=== PATIENT | female | born 1950 | race Caucasian/White ===

== ENCOUNTER → 2017-09-17 | Outpatient (CLI) | payer MEDICARE, OTHER ==
[~2017-09-17] MED LIST: ASPI-715 PO; CEPH250C37 PO; CHOL200074 PO; DICL100G24 TP; HYDR28.426 TP; INUL1TAB PO; KRIL500C2 PO; LACT1CAP6 PO; LEVO75TA73 PO; METANXPT PO; METF-411 PO; METR1COM3 TP; TRET15GE13 TP; [UNRECOGNIZED DRUG - CODE] PO
--- NOTE | 2017-09-17 11:09 | RADIOLOGY IMAGING REPORT ---
[place] [facility] [place] Anitha Weiss : 1950 MR: [id number] V: [id number] EXAM DATE: ORDERING PHYSICIAN: ARI DODSON TECHNOLOGIST: Location: [facility] - [place] Patient: Anitha Weiss : 1950 Visit/Account:[id number] Date of Sevice: 09/17/2017 Study: CT scan of the brain without intravenous contrast. Indication: Head injury Comparison study:None Technique: Multiple axial images were obtained through the brain without the use of intravenous contr ast. One of the following dose optimization techniques was utilized in the performance of this exam: Autom ated exposure control; adjustment of the mA and/or kV according to the patient's size; or use of an i terative reconstruction technique. Specific details can be referenced in the facility's radiology C T exam operational policy. The examination demonstrates no evidence of acute intracranial hemorrhage. There is no evidence of ex tra-axial collection or hydrocephalus. There is an area of CSF density within the left caudate nucleus head. 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 There is no evidence of disruption of the peripheral allen-white junction. The bony structures are unremarkable. IMPRESSION: No acute intracranial abnormality identified. There is no evidence of intracranial traum atic injury. Report Dictated By: David Skinner at 09/17/2017 11:04 AM Report E-Signed By: David Skinner at 09/17/2017 11:06 AM [id number]
== END ==
LOC: CT 10:37
PROVIDERS: ATTEND Family Medicine
DX: H53.9 Unspecified visual disturbance (principal); R51 Headache
CPT/HCPCS: 70450

== ENCOUNTER → 2017-11-23 | Outpatient (CLI) | payer MEDICARE, OTHER ==
[2017-11-23 14:24] LABS: LDL CHOLESTEROL 74 mg/dl
== END ==
LOC: LAB 13:17
PROVIDERS: ATTEND Family Medicine
DX: E11.65 Type 2 diabetes mellitus with hyperglycemia (principal); E78.5 Hyperlipidemia, unspecified; E03.9 Hypothyroidism, unspecified
CPT/HCPCS: 36415; 82040; 82043; 82247; 82310; 82374; 82435; 82465; 82565; 82947; 83036; 83718; 84075; 84132; 84155; 84295; 84443; 84450; 84460; 84478; 84520

== ENCOUNTER 2018-08-10 03:38 | Emergency (ER) | payer MEDICARE, OTHER ==
[~2018-08-10 03:38] MED LIST changes: -METF-411 PO; +METF-450 PO
--- NOTE | 2018-08-10 03:41 | ER Report ---
History and Physical Time Seen By MD: 03:40 HPI/ROS CHIEF COMPLAINT: Accidental overdose on verapamil HISTORY OF PRESENT ILLNESS: 68-year-old female who takes verapamil for PVC control. He takes 180 mg extended-release over 12 hour tablet for many years. Tonight she left the pill on the table accidentally picked it up with some knots crunched up and swallowed it. She contacted poison control because she was feeling nauseous and shaky. She denies chest pain, shortness of breath, near- syncope. Poison control advised her to come in for evaluation. They advise monitoring for several hours for hypotension and bradycardia. REVIEW OF SYSTEMS: Respiratory: No cough, no dyspnea. Cardiovascular: No chest pain, no palpitations. Gastrointestinal: No vomiting, no abdominal pain. Musculoskeletal: No back pain. Allergies: Coded Allergies: clindamycin (Verified Allergy, Severe, STOMACH REFLUX, 08/10/18) adhesive (Verified Allergy, Intermediate, REDNESS, 08/10/18) codeine (Verified Allergy, Intermediate, RINGING IN EARS, 08/10/18) naproxen (Verified Allergy, Intermediate, RINGING IN EARS, 08/10/18) penicillin G (Verified Allergy, Intermediate, LARGE HIVES, 08/10/18) BEE STINGS (Verified Allergy, Unknown, HIVES, 08/10/18) Uncoded Allergies: HAYFEVER (Allergy, Intermediate, UNKNOWN, 10/01/11) Home Meds Reported Medications Inulin/Chromium Picolinate (Fiber Gummies) 1 Each Tab.chew, 1 TAB PO DAILY 01/08/17 Lactobacillus Combination No.4 (PROBIOTIC) 1 Each Capsule, 1 EACH PO DAILY, CAPSULE 01/08/17 Levothyroxine Sodium (LEVOTHYROXINE SODIUM) 75 Mcg Tablet, 75 MCG PO QDAY, TAB 01/08/17 Metformin Hcl (METFORMIN HCL) 500 Mg Tablet, 1 TAB PO TID, TAB 01/08/17 Cholecalciferol (Vitamin D3) (VITAMIN D-3) 2,000 Unit Capsule, 1 CAP PO DAILY, CAPSULE 04/25/14 Metronidazole/Skin Cleanser (Metrogel 1% Kit) 1 Ea Combo..pkg, 1 EA TP DAILY, 0 Refills 04/08/11 Krill Oil (Krill Oil) 500 Mg Capsule, 300 MG PO DAILY, 0 Refills 04/08/11 Me-Cobalam/Lm-Folate/Pyridoxal (Metanx Tablet) 1 Tab Tablet, 1 TAB PO BID, 0 Refills 04/08/11 Aspirin (Aspirin) 81 Mg Tablet.dr, 81 MG PO DAILY, 0 Refills 04/08/11 Verapamil Hcl (Verapamil Er) 180 Mg Tablet.er, 180 MG PO DAILY, 0 Refills 04/08/11 Past Medical/Surgical History Past Medical History Neurologic: Reports hx of: migraine other neurologic history (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) Cardiovascular: Reports hx of: hypertension other CV history (MVP) Integumentary: Reports hx of: other integumentary hx (rosacea) Endocrine: Reports hx of: other endocrine history (hyperglycemia) Past Surgical History Gastrointestinal: Reports hx of: cholecystectomy (1975) Gynecologic: Reports hx of: 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) Musculoskeletal: Reports hx of: spinal surgery (lumbar lami 10/08) other musculoskeletal srg (DeQuervain's tendon surgery 07/02) Reviewed Nurses Notes: Yes Old Medical Records Reviewed: Yes Hx Smoking: No Smoking Status: Never Smoker Exposure to Second Hand Smoke?: No Hx Alcohol Use: No Constitutional Vital Sign - Last 24 Hours 08/10/18 08/10/18 08/10/18 08/10/18 03:42 03:43 03:45 03:53 Temp 98.8 Pulse 82 83 Resp 14 15 B/P (MAP) 171/70 (103) 171/70 157/81 (106) Pulse Ox 90 89 O2 Delivery Room Air 08/10/18 08/10/18 08/10/18 08/10/18 04:00 04:08 04:23 04:30 Pulse 76 78 Resp 39 11 B/P (MAP) 153/75 (101) 145/79 (101) Pulse Ox 90 96 08/10/18 08/10/18 08/10/18 08/10/18 04:38 04:53 05:00 05:23 Pulse 69 65 70 Resp 14 11 17 B/P (MAP) 140/70 (93) Pulse Ox 88 90 89 08/10/18 08/10/18 08/10/18 08/10/18 05:30 05:32 05:37 05:52 Pulse 72 73 68 Resp 14 11 B/P (MAP) 122/47 (72) Pulse Ox 88 90 08/10/18 08/10/18 08/10/18 08/10/18 06:00 06:07 06:22 06:30 Pulse 66 Resp 17 9 B/P (MAP) 128/58 (81) 124/66 (85) Pulse Ox 82 93 Intake and Output 08/09/18 08/09/18 08/10/18 14:59 22:59 06:59 Intake Total 1000 ml Balance 1000 ml General Appearance: [The patient is alert, has no immediate need for airway protection and no current signs of toxicity.] [ ] [Eyes:] [Pupils equal and round no injection.] Respiratory: [Chest is non tender, lungs are clear to auscultation.] Cardiac: [regular rate and rhythm] [ ] Gastrointestinal: [Abdomen is soft and non tender, no masses, bowel sounds normal.] [Musculoskeletal:] [Neck:] [Neck is supple and non tender.] [Extremities have full range of motion and are non tender.] [Skin:] [No rashes or lesions.] [ ] [DIFFERENTIAL DIAGNOSIS: After history and physical exam differential diagnosis was considered for] [ ] Physical Exam General Appearance: The patient is alert, has no immediate need for airway protection and no current signs of toxicity. Vital signs stable, afebrile, pulse ox normal HEENT: Pupils equal and round no injection. Oropharynx without redness or exudate, mucous. Membranes are moist Respiratory: Chest is non tender, lungs are clear to auscultation. Cardiac: regular rate and rhythm, no murmur Gastrointestinal: Abdomen is soft and non tender, no masses, bowel sounds normal. Musculoskeletal: Neck: Neck is supple and non tender. Extremities have full range of motion and are non tender. Skin: No rashes or lesions. DIFFERENTIAL DIAGNOSIS: After history and physical exam differential diagnosis was considered for accidental overdose, hypotension, bradycardia Medical Decision Making Data Points Result Diagram: 08/10/18 0400 08/10/18 0400 Laboratory Hematology Test 08/10/18 04:00 Red Blood Count 5.11 M/uL (4.17-5.56) Mean Corpuscular Volume 90.5 fL (80.0-96.0) Mean Corpuscular Hemoglobin 30.2 pg (26.0-33.0) Mean Corpuscular Hemoglobin Concent 33.4 g/dL (32.0-36.0) Red Cell Distribution Width 13.6 % (11.5-14.5) Mean Platelet Volume 7.7 fL (7.2-11.1) Neutrophils (%) (Auto) 52.8 % (39.4-72.5) Lymphocytes (%) (Auto) 35.7 % (17.6-49.6) Monocytes (%) (Auto) 7.9 % (4.1-12.4) Eosinophils (%) (Auto) 2.8 % (0.4-6.7) Basophils (%) (Auto) 0.8 % (0.3-1.4) Nucleated RBC Relative Count (auto) 0.0 /100WBC Neutrophils # (Auto) 3.7 K/uL (2.0-7.4) Lymphocytes # (Auto) 2.5 K/uL (1.3-3.6) Monocytes # (Auto) 0.6 K/uL (0.3-1.0) Eosinophils # (Auto) 0.2 K/uL (0.0-0.5) Basophils # (Auto) 0.1 K/uL (0.0-0.1) Nucleated RBC Absolute Count (auto) 0.00 K/uL Sodium Level 138 mmol/L (137-145) Potassium Level 3.9 mmol/L (3.5-5.0) Chloride Level 102 mmol/L (98-107) Carbon Dioxide Level 27 mmol/L (22-31) Blood Urea Nitrogen 17 mg/dl (7-18) Creatinine 0.80 mg/dl (0.52-1.04) Glomerular Filtration Rate Calc > 60.0 Random Glucose 166 mg/dl (75-110) Calcium Level 9.9 mg/dl (8.4-10.2) Total Bilirubin 0.2 mg/dl (0.2-1.3) Aspartate Amino Transf (AST/SGOT) 25 U/L (0-35) Alanine Aminotransferase (ALT/SGPT) 37 U/L (0-56) Alkaline Phosphatase 53 U/L (0-126) Troponin I < 0.012 ng/ml Total Protein 8.1 g/dl (6.3-8.2) Albumin 4.8 g/dl (3.5-5.0) Chemistry Test 08/10/18 04:00 White Blood Count 7.0 k/uL (4.5-11.0) Red Blood Count 5.11 M/uL (4.17-5.56) Hemoglobin 15.4 g/dL (12.0-16.0) Hematocrit 46.2 % (34.0-47.0) Mean Corpuscular Volume 90.5 fL (80.0-96.0) Mean Corpuscular Hemoglobin 30.2 pg (26.0-33.0) Mean Corpuscular Hemoglobin Concent 33.4 g/dL (32.0-36.0) Red Cell Distribution Width 13.6 % (11.5-14.5) Platelet Count 236 K/uL (150-450) Mean Platelet Volume 7.7 fL (7.2-11.1) Neutrophils (%) (Auto) 52.8 % (39.4-72.5) Lymphocytes (%) (Auto) 35.7 % (17.6-49.6) Monocytes (%) (Auto) 7.9 % (4.1-12.4) Eosinophils (%) (Auto) 2.8 % (0.4-6.7) Basophils (%) (Auto) 0.8 % (0.3-1.4) Nucleated RBC Relative Count (auto) 0.0 /100WBC Neutrophils # (Auto) 3.7 K/uL (2.0-7.4) Lymphocytes # (Auto) 2.5 K/uL (1.3-3.6) Monocytes # (Auto) 0.6 K/uL (0.3-1.0) Eosinophils # (Auto) 0.2 K/uL (0.0-0.5) Basophils # (Auto) 0.1 K/uL (0.0-0.1) Nucleated RBC Absolute Count (auto) 0.00 K/uL Glomerular Filtration Rate Calc > 60.0 Calcium Level 9.9 mg/dl (8.4-10.2) Total Bilirubin 0.2 mg/dl (0.2-1.3) Aspartate Amino Transf (AST/SGOT) 25 U/L (0-35) Alanine Aminotransferase (ALT/SGPT) 37 U/L (0-56) Alkaline Phosphatase 53 U/L (0-126) Troponin I < 0.012 ng/ml Total Protein 8.1 g/dl (6.3-8.2) Albumin 4.8 g/dl (3.5-5.0) EKG/Imaging EKG Interpretation 12 lead EK 357 Rhythm: normal sinus rhythm [place]: normal QRS: normal ST segments: normal, no evidence of ischemia, or dysrhythmia ED Course/Re-evaluation Clinical Indication for ER IV: Hydration, IV Access ED Course Patient was admitted to an examination room. H&P was done. The differential diagnoses was considered. On arrival, patient has stable vital signs, slightly elevated blood pressure and heart rate of 89. She presumably consumed a extend release 180 mg verapamil tablet that is post to be released over 12 hours. She consumed it with peanuts and crunched it up and swallowed it. Poison control advised her to come in for evaluation. Patient feels a little shaky and a trace of nausea on arrival. Otherwise she feels fine. Her EKG shows a normal sinus rhythm without evidence of ischemia or dysrhythmia. Patient has a peripheral IV established. She is given 1 L of normal saline. Diagnostic laboratory studies are unremarkable except her glucose is 166. Patient was monitored for 4 hours after ingestion without symptoms. She remained non-bradycardic in her pressure remained stable in the 120s. She was discharged home to follow-up with her primary care physician. Decision to Disposition Date: Aug 10, 2018 Decision to Disposition Time: 05:55 Depart Departure Latest Vital Signs Vital Signs Date Time Temp Pulse Resp B/P (MAP) Pulse Ox O2 Delivery O2 Flow Rate FiO2 08/10/18 06:30 124/66 (85) 08/10/18 06:22 66 9 93 08/10/18 03:43 98.8 Room Air Impression: Primary Impression: Accidental overdose Additional Impression: Hyperglycemia Condition: Improved Disposition: HOME OR SELF-CARE Referrals: ARI DODSON DO (PCP) Patient Instructions: GENERAL ER DISCHARGE INSTRUCTIONS Additional Instructions: Follow-up with your primary care as needed Problem Qualifiers Primary Impression: Accidental overdose Encounter type: initial encounter Qualified Codes: T50.901A - Poisoning by unspecified drugs, medicaments and biological substances, accidental (unintentional), initial encounter DAYANA SHARPE DO Aug 10, 2018 03:41
[2018-08-10] MEDS ORDERED: NS(*) 0.9% 1000 ML BAG 1,000 ML IV ONE (03:46)
[2018-08-10 04:11] LABS: PLATELET COUNT, AUTOMATED 236 K/uL (150-450)
--- NOTE | 2018-08-10 05:32 | EKG ---
FACILITY: [facility] [place] PATIENT NAME: LOREN FLANNERY : [id number] MR: [id number] V: [id number] EXAM DATE: ORDERING PHYSICIAN: DAYANA SHARPE TECHNOLOGIST: PANKAJ Quiñones Reason : CARDIAC Blood Pressure : / mmHG Vent. Rate : 080 BPM Atrial Rate : 080 BPM P-R Int : 180 ms QRS Dur : 088 ms QT Int : 384 ms P-R-T Axes : 043 010 015 degrees QTc Int : 442 ms Normal sinus rhythm Normal ECG When compared with ECG of 24-NOV-2013 10:49, premature ventricular complexes are no longer present aberrant conduction is no longer present Confirmed by Conner Benitez ([id number]) on 08/10/2018 7:55:57 AM Referred By: Confirmed By:Conner Cartagena
[2018-08-10 06:30] VITALS: BP 124/66
== END 2018-08-10 06:45 | disposition home or self-care (01) ==
LOC: ER 04:53
DX: T46.1X1A Poisoning by calcium-channel blockers, accidental (unintentional), initial encounter (principal); R73.9 Hyperglycemia, unspecified
CPT/HCPCS: 84484; 85025; 93005; 96360; 99283; J7030; 82040; 82247; 82310; 82374; 82435; 82565; 82947; 84075; 84132; 84155; 84295; 84450; 84460; 84520

== ENCOUNTER → 2018-08-28 | Outpatient (CLI) | payer MEDICARE, OTHER ==
[2018-08-28 15:11] LABS: LDL CHOLESTEROL 87 mg/dl
== END ==
LOC: LAB 14:38
PROVIDERS: ATTEND Family Medicine
DX: E78.5 Hyperlipidemia, unspecified (principal); E11.65 Type 2 diabetes mellitus with hyperglycemia; E03.9 Hypothyroidism, unspecified; I10 Essential (primary) hypertension
CPT/HCPCS: 36415; 82040; 82043; 82247; 82310; 82374; 82435; 82465; 82565; 82947; 83036; 83718; 84075; 84132; 84155; 84295; 84443; 84450; 84460; 84478; 84520

== ENCOUNTER 2018-11-01 16:00 | Outpatient (RCR) | payer MEDICARE, OTHER ==
--- NOTE | 2018-09-17 20:36 | PT INITIAL EVALUATION ---
MEDICAL DIAGNOSIS: L hip pain, trochanteric bursitis, IT band irritation, LBP TREATMENT DIAGNOSIS: L hip pain, trochanteric bursitis, IT band syndrome DATE OF ONSET: 09/17/18 SUBJECTIVE: Anitha is a 68 year old female presenting to physical therapy following gradual development of L lateral hip and leg pain. Pt reports that she partially tore her IT band 1.5 years prior and that since she has had frequent difficulty with IT band stiffness and pain. Pain started up recently about a month ago after increasing walking routine and was initially high rated at 10/10. Pain is improving and typically is around 5/10 at worst currently and 0/10 at best. Pain is increased with stair climbing, driving, and lying side- lying on either side L>R. Pain is improved occasional with Tylenol but only minimally. REHAB PROBLEM LIST: Increased Pain Decreased ROM Impaired Bed Mobility Decreased Strength Impaired Transfers Decreased Endurance Decreased Balance Decreased Function Decreased ADL's Decreased Mobility Decreased Gait PREVIOUS MEDICAL HISTORY: See EMR OBJECTIVE: ROM: Lumbar ROM: full in all directions with minimal hip pain with R SB. Hip ROM: WFL with pain in end range L adduction Strength: Hip MMT (L,R): flexion: 4+/5 with pain, 4+/5, abd: 4-/5B, Add: 4+/5B, abd: 4/5 with pain, 4+/5. Knee: ext: 4/5B, flexion: 4-/5, 4/5. Palpation: Pt has swelling located over the L greater trochanter of the femur which is tender to palpation. Significant soft tissue restrictions are noted along the IT band with occasional bruising. TTP remains along the IT band into the attachment point at the knee. Pain is greatest at distal end. Special Tests: Valerie's test L (+) pain Gait: Gait significant for mild reverse Trendelenburg with trunk sway over L LE in stance. Balance: 4 Stage balance: R SLS 10 sec, L SLS unable to obtain. ASSESSMENT: Pt shows signs and symptoms consistent with L greater trochanteric bursitis with IT band syndrome. Physical therapy is indicated for this patient to address the above listed deficits to improve pt function with ADL's. Short Term Goals In 3 weeks pt will be able to stand on her L leg SLS for 10 seconds without hip drop or pain for improved function with ambulation. In 6 weeks pt will improve B LE strength as tested by MMT to 4+/5 or greater in all major muscle groups of the hip and knees for improved function with ADL's and transfers. In 6 weeks pt will be able to ambulate up and down 2 flights of stairs with good hip and knee mechanics for community ambulation with ADL's. Patient's Goals Decrease hip pain, improve function to decrease pain on back and R knee. PLAN: Patient to be seen for Manual Therapy/STM/MET Strengthening/condition Ice/Heat Range of Motion Spinal Stabilization Ultrasound Stretching Iontophoresis Neuromuscular Re-ed Closed Chain Program Electrical Stim Posture/Body mechanics Gait Trg/Balance Trg Biofeedback Home Exercise Program Mech./Manual Traction Therapeutic Activities Pelvic Floor 3x/Week for 6 Weeks If you have any questions, comments, or concerns about this report or plan, please contact me at . Thank you, Nanci Ness, PT, DPT, CLT MTDD
--- NOTE | 2018-10-20 15:43 | PT PLAN OF CARE ---
Physician: Wesley Chavez MD Patient is being seen: 2x/week Therapist: Nanci Ness, PT, DPT and Camilo Mckeon, PT, DPT Medical Diagnosis: L hip pain, trochanteric bursitis, IT band irritation, LBP Treatment Diagnosis: L hip pain, trochanteric bursitis, IT band syndrome Date of Onset: 09/17/18 Date of Initial Evaluation: 09/17/18 Date patient was last seen: 10/19/18 Number of treatments: 10 Number of cancellations/No shows: 0 INTERVENTIONS: Manual Therapy/STM/MET Strengthening/condition Ice/Heat Range of Motion Spinal Stabilization Ultrasound Stretching Iontophoresis Neuromuscular Re-ed Closed Chain Program Electrical Stim Posture/Body mechanics Gait Trg/Balance Trg Biofeedback Home Exercise Program Mech./Manual Traction Therapeutic Activities Pelvic Floor GOALS: In 3 weeks pt will be able to stand on her L leg SLS for 10 seconds without hip drop or pain for improved function with ambulation. Progressing well In 6 weeks pt will improve B LE strength as tested by MMT to 4+/5 or greater in all major muscle groups of the hip and knees for improved function with ADL's and transfers. Progressing well In 6 weeks pt will be able to ambulate up and down 2 flights of stairs with good hip and knee mechanics for community ambulation with ADL's. Progressing well PATIENT'S GOAL: Decrease hip pain, improve function to decrease pain on back and R knee. Progressing well Status of Patient's Goals: Progressing well Patient Compliance: Good Prognosis: Good Reasons for continuing therapy: This is a progress note for Anitha Weiss. She reports that she is doing much better. She reports that she can now walk 2 blocks and shopping without problems, going up and down stairs, and feels like her L hip is almost back to normal. She reports that she feels like her L hip is 90% back to what she considers normal. She reports that her R hip is 50-60% back to what she considers normal. Furthermore, she reports that she still cannot walk her desired 2-3 miles, walk up hill, or lay on her L or R side, which she states that she would like to perform. She has demonstrated significant improvements within physical therapy that include the following: improved gait mechanics with reduced to abolished Trendelenburg, significant improvements in B LE strength and abolished pain with MMT's, improved mechanics with going up and down stairs with abolished pain, increased SLS on L LE as she was able to achieve between 8-10 seconds, which she could not do any SLS during the initial examination, abolished bursitis pain to touch or resting. However, she continues to be limited by her R gluteal strain and her L ITB that we will continue to improve and return to her prior level of function so that she can get back to painfree ambulation and laying on her R and L side so that she can sleep better. She has demonstrated significant improvements within physical therapy that include the following: improved gait mechanics with reduced to abolished Trendelenburg, significant improvements in B LE strength and abolished pain with MMT's, improved mechanics with going up and down stairs with abolished pain, increased SLS on L LE as she was able to achieve between 8-10 seconds, which she could not do any SLS during the initial examination, abolished bursitis pain to touch or resting. However, she continues to be limited by her R gluteal strain and her L ITB that we will continue to improve and return to her prior level of function so that she can get back to painfree ambulation and laying on her R and L side so that she can sleep better. ROM: Lumbar ROM: full in all directions with minimal hip pain with R SB. Hip ROM: WFL with pain in end range L adduction Strength: Hip MMT (L,R): flexion: 4+/5 with no pain, 4+/5, abd: 4-/5B, Add: 4+/5B, abd: 4+/5 with no pain, 4+/5. Knee: ext: 4+/5B, flexion: 4/5, 4+/5. Palpation: No longer has pain or swelling surrounding the bursae. Continues to have soft tissue restrictions are noted along the IT band with occasional bruising. TTP remains along the IT band into the attachment point at the knee. Pain is greatest at distal end. Special Tests: Valerie's test L (+) pain If you have any questions, please contact me at [phone]. Thank you, Camilo Mckeon, PT, DPT MTDD
--- NOTE | 2018-11-02 08:08 | PT PLAN OF CARE ---
Physician: Wesley Chavez MD Patient is being seen: 2x/week Therapist: Camilo Mckeon, PT, DPT Medical Diagnosis: L hip pain, trochanteric bursitis, IT band irritation, LBP Treatment Diagnosis: L hip pain, trochanteric bursitis, IT band syndrome Date of Onset: 09/17/18 Date of Initial Evaluation: 09/17/18 Date patient was last seen: 11/01/18 Number of treatments: 12 Number of cancellations/No shows: 0 INTERVENTIONS: Manual Therapy/STM/MET Strengthening/condition Ice/Heat Range of Motion Spinal Stabilization Ultrasound Stretching Iontophoresis Neuromuscular Re-ed Closed Chain Program Electrical Stim Posture/Body mechanics Gait Trg/Balance Trg Biofeedback Home Exercise Program Mech./Manual Traction Therapeutic Activities Pelvic Floor GOALS: In 3 weeks pt will be able to stand on her L leg SLS for 10 seconds without hip drop or pain for improved function with ambulation. MET In 6 weeks pt will improve B LE strength as tested by MMT to 4+/5 or greater in all major muscle groups of the hip and knees for improved function with ADL's and transfers. MET In 6 weeks pt will be able to ambulate up and down 2 flights of stairs with good hip and knee mechanics for community ambulation with ADL's. MET PATIENT'S GOAL: Decrease hip pain, improve function to decrease pain on back and R knee. MET Status of Patient's Goals: Progressing well Patient Compliance: Good Prognosis: Good Reasons for continuing therapy: This is a discharge note for Anitha Weiss. She reports that she is doing much better. She reports that she can now walk one mile and shopping without problems, going up and down stairs, and feels like her B hips are almost back to normal. She reports that she feels like her L hip is 90% back to what she considers normal. She reports that her R hip is 90% back to what she considers normal. Overall, she reports that her B hips now feel great, abolished resting pain, occasional 2-3/10 pain with going up stairs, and 0/10 going down stairs. She reports that she can walk one mile without any pain during or following. She reports that she feels independent on her HEP. She reports that she wants to transition to be independent. She reports that she will continue to increase her ambulation distance to the 2-3 miles by increasing 10% each week. She has progressed well within PT demonstrating increased core and B LE strength, abolished B lateral hip pain, and independent on her HEP. She has met all of her goals. As a result, she will be discharged from PT to [facility]. ROM: Lumbar ROM: full in all directions with minimal hip pain with R SB. Hip ROM: WFL with pain in end range L adduction Strength: Hip MMT (L,R): flexion: 4+/5 with no pain, 4+/5, abd: 4+/5B, Add: 4+/5B, abd: 4+/5 with no pain, 4+/5. Knee: ext: 4+/5B, flexion: 4+/5, 4+/5. Palpation: No longer TTP, but continues to have decreased accessory mobility and could be due to veins as well. If you have any questions, please contact me at [phone]. Thank you, Camilo Mckeon, PT, DPT MOISÉSD
== END 2018-12-16 ==
LOC: PT 16:00
PROVIDERS: ATTEND Orthopaedic Surgery
DX: M70.62 Trochanteric bursitis, left hip (principal); M54.5 Low back pain; M76.32 Iliotibial band syndrome, left leg
CPT/HCPCS: 97161